=== PATIENT | male | born 1960 | race Caucasian/White ===

== ENCOUNTER 2017-07-25 12:37 | Outpatient (CLI) | payer BC ==
--- NOTE | 2017-07-25 14:12 | ULT ---
VENOUS DOPPLER ULTRASOUND OF THE LEFT LOWER EXTREMITY: Date: 07/25/17 HISTORY: Follow-up of popliteal vein thrombosis of the left lower extremity. TECHNIQUE: Ashford scale ultrasound with color flow and spectral Doppler imaging of the deep venous systems of the left lower extremity is performed. FINDINGS: Comparison made with exam dated 01/03/17. Partial compressibility due to incompletely occlusive thrombus in the popliteal vein with diminished flow is again seen. The remainder of the deep venous system of the left lower extremity is otherwise patent. 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 POS: HOANG
== END 2017-07-25 12:38 | disposition home or self-care (01) ==
LOC: ULT 12:37
PROVIDERS: ATTEND Nurse Practitioner Family
DX: I82.432 Acute embolism and thrombosis of left popliteal vein (principal)

== ENCOUNTER 2018-01-18 12:28 | Outpatient (CLI) | payer BC ==
--- NOTE | 2018-01-18 13:49 | ULT ---
ULTRASOUND WITH DOPPLER DUPLEX VENOUS LOWER EXTREMITY LEFT: CPT: 20074 ICD-10-PCS: B54D INDICATION: History of chronic deep venous thrombosis. Reference made to 07/25/17 exam. TECHNIQUE: Color flow Doppler, spectral waveform analysis of pulsed Doppler, and huertas-scale imaging with cris constantino and augmentation, were used to evaluate the left common femoral, femoral, popliteal, posterior t ibial, and superficial femoral, veins; and the proximal portions of the profunda femoral and greater saphenous, veins. FINDINGS: There is evidence of increased echogenicity with diminished flow and lack of normal compressibility w ithin the left popliteal vein, as well as within the distal left femoral vein. Deep venous thrombosis of popliteal vein was demonstrated on prior exam of 07/25/17. IMPRESSION: Nonocclusive thrombus redemonstrated. Clot involves the distal thigh region of the left femoral vein, as well as the popliteal vein. Telephone call findings placed to nurse yoli Cole, at time of dictation, 1307 hours, 01/18/18. CODE CR.
== END 2018-01-18 12:29 | disposition home or self-care (01) ==
LOC: SCSULT 12:28
PROVIDERS: ATTEND Nurse Practitioner Family
DX: I10 Essential (primary) hypertension (principal); I82.432 Acute embolism and thrombosis of left popliteal vein; I82.412 Acute embolism and thrombosis of left femoral vein

== ENCOUNTER 2018-07-06 19:51 | Emergency (ER) | payer BC ==
[2018-07-06] MEDS ORDERED: Acetaminophen 500 MG TAB ONE (20:23)
[2018-07-06] MEDS ORDERED: Ondansetron PF 4 MG/2 ML Vial ONE (20:23)
[2018-07-06 20:32] LABS: Hemoglobin 14.5 g/dL (14.0-18.0); Mean Corpuscular HGB CONC 33.3 g/dL (32.0-36.0); Mean Corpuscular Hemoglobin 28.6 pg (27.0-31.0); Mean Corpuscular Volume 85.9 fL (78.0-98.0); Mean Platelet Volume 7.7 fL (7.4-10.4); Platelet Count 189 thou/uL (130-400); RBC Distribution Width 13.4 % (11.5-14.5); Red Blood Cell (RBC) Count 5.05 mill/uL (4.70-6.10); White Blood Cell (WBC) Count 23.6 thou/uL (4.8-10.8)
[2018-07-06 20:56] LABS: ALT (SGPT) 18 U/L (8-55); AST (SGOT) 20 U/L (5-34); Albumin 3.9 g/dL (3.5-5.0); Alkaline Phosphatase 57 U/L (40-150); Anion Gap 18 mmol/L (10-20); BUN (Urea Nitrogen) 18 mg/dL (8.4-25.7); Bilirubin, Total 0.9 mg/dL (0.2-1.2); Calc. Creatinine Clearance 0 mL/min (70-130); Calcium 9.5 mg/dL (7.8-10.44); Carbon Dioxide 19 mmol/L (22-29); Chloride 99 mmol/L (98-107); Estimated GFR-MDRD 63; Globulin 3.5 g/dL (2.4-3.5); Glucose 237 mg/dL (70-105); Potassium 3.7 mmol/L (3.5-5.1); Protein, Total 7.4 g/dL (6.0-8.3); Sodium 132 mmol/L (136-145)
[2018-07-06 21:00] LABS: Band 4 % (5-11); Lymphocytes 3 % (21-51); MDiff Complete? YES; Monocytes 4 % (0-10); Neutrophil 88 % (42-75); Platelet Morphology Comment Appears Adequate; RBC Morphology Normal
[2018-07-06 21:11] LABS: Bilirubin Negative (Negative); Blood, Urine Negative (Negative); Clarity Clear (Clear); Glucose, Urine (Dipstick) Negative (Negative); Leukocyte Negative (Negative); Nitrite Negative (Negative); Protein, Urine (Dipstick) Trace mg/dL (Neg-Trace); Urobilinogen 0.2 mg/dL (0.2-1.0); pH, Urine 5.5 (5.0-9.0)
[2018-07-06] MEDS ORDERED: Ibuprofen 200 MG TAB ONE (22:29)
[2018-07-07] MEDS ORDERED: Acetaminophen 500 MG TAB ONE (00:43)
--- NOTE | 2018-07-07 09:12 | RAD ---
TWO VIEW CHEST: History: Fever. FINDINGS: Lungs appear clear of infiltrate. Heart size is borderline enlarged. There is mild vascular engorgeme nt. No effusion. Osseous structures unremarkable. IMPRESSION: Borderline cardiomegaly with mild vascular engorgement. No evidence of focal infiltrate. POS: H
== END 2018-07-07 01:17 | disposition home or self-care (01) ==
LOC: SCSER 19:51
DX: R50.9 Fever, unspecified (principal); E11.9 Type 2 diabetes mellitus without complications; E78.5 Hyperlipidemia, unspecified; E66.9 Obesity, unspecified; I10 Essential (primary) hypertension; F17.220 Nicotine dependence, chewing tobacco, uncomplicated; Z86.718 Personal history of other venous thrombosis and embolism; Z79.4 Long term (current) use of insulin; Z79.899 Other long term (current) drug therapy
CPT/HCPCS: 71046; 80053; 81003; 83605; 84443; 85025; 87040; 87804; 96361; 96374; J2405

== ENCOUNTER 2018-08-08 14:28 | Outpatient (CLI) | payer BC ==
--- NOTE | 2018-08-08 15:52 | ULT ---
LEFT LOWER EXTREMITY VENOUS ULTRASOUND: History: Chronic thrombus in the left popliteal vein. Acute pulmonary thromboembolism. Technique: Multiplanar grayscale and color doppler images were obtained in a left lower extremity filippo ous ultrasound. Spectral analysis of the doppler waveforms were performed. FINDINGS: Thrombus is again seen in the left popliteal vein which is nonocclusive. No thrombus is seen in the c ommon femoral vein, profunda femoral vein, or superficial femoral vein. The greater saphenous vein is patent without evidence of thrombus. IMPRESSION: Stable nonocclusive thrombus in the left popliteal vein. POS: JEANNETTE
== END 2018-08-08 14:29 | disposition home or self-care (01) ==
LOC: SCSULT 14:28
PROVIDERS: ATTEND Nurse Practitioner Family
DX: I82.432 Acute embolism and thrombosis of left popliteal vein (principal)

== ENCOUNTER 2022-08-18 18:00 | Outpatient (CLI) | payer BC | END 2022-08-18 18:01 | disposition home or self-care (01) | LOC: SLEEPLAB 18:00 | PROVIDERS: ATTEND Family Medicine | DX: G47.33 Obstructive sleep apnea (adult) (pediatric) (principal); F51.9 Sleep disorder not due to a substance or known physiological condition, unspecified | CPT/HCPCS: 95800 ==

== ENCOUNTER 2022-10-12 23:40 | Observation (INO) | payer BC ==
[2022-10-13 00:33] LABS: #Eosinphils 0.2 thou/uL (0.0-0.7); #Lymphocytes 2.5 thou/uL (1.20-3.40); #Monocytes 0.8 thou/uL (0.11-0.59); #Neutrophils 6.8 thou/uL (1.40-6.50); %Basophils 0.2 % (0.0-1.0); %Eosinophils 2.2 % (0.0-10.0); %Lymphocytes 24.4 % (21.0-51.0); %Monocytes 7.5 % (0.0-10.0); %Neutrophils 65.7 % (42.0-75.0); Hemoglobin 13.8 g/dL (14.0-18.0); Mean Corpuscular HGB CONC 34.3 g/dL (32.0-36.0); Mean Corpuscular Hemoglobin 29.5 pg (27.0-31.0); Mean Platelet Volume 8.3 fL (7.4-10.4); Platelet Count 177 10x3/uL (130-400); RBC Distribution Width 13.5 % (11.5-14.5); Red Blood Cell (RBC) Count 4.66 mill/uL (4.70-6.10); White Blood Cell (WBC) Count 10.3 10x3/uL (4.8-10.8)
[2022-10-13 00:55] LABS: ALT (SGPT) 18 U/L (8-55); AST (SGOT) 13 U/L (5-34); Albumin 4.1 g/dL (3.5-5.0); Alkaline Phosphatase 55 U/L (40-110); Anion Gap 16 mmol/L (10-20); BUN (Urea Nitrogen) 19 mg/dL (8.4-25.7); Bilirubin, Total 0.4 mg/dL (0.2-1.2); Calc. Creatinine Clearance 0 mL/min (70-130); Calcium 9.4 mg/dL (7.8-10.44); Carbon Dioxide 22 mmol/L (22-29); Chloride 101 mmol/L (98-107); Estimated GFR 74; Globulin 3.2 g/dL (2.4-3.5); Glucose 298 mg/dL (70-105); Potassium 3.9 mmol/L (3.5-5.1); Protein, Total 7.3 g/dL (6.0-8.3); Sodium 135 mmol/L (136-145)
[2022-10-13 01:16] LABS: CKMB 2.3 ng/mL (0-6.6)
[2022-10-13] MEDS ORDERED: Ondansetron ODT 4 MG TAB PO PRN (01:46)
[2022-10-13] MEDS ORDERED: Acetaminophen 325 MG TAB PO PRN (01:46)
[2022-10-13] MEDS ORDERED: HYDROcodone/Acetaminophen 5/325 mg Tablet PO PRN (01:46)
[2022-10-13] MEDS ORDERED: Nitroglycerin 0.4 MG TAB (25 Tab Bottle) SL PRN (01:46)
[2022-10-13] MEDS ORDERED: Ondansetron PF 4 MG/2 ML Vial IVP PRN (01:46)
[2022-10-13] MEDS ORDERED: Nitroglycerin 2% Ointment 1 INCH/1 GM Packet ONE (01:49)
[2022-10-13] MEDS ORDERED: Dextrose 50% Abboject 50 ML SYRINGE SLOW IVP PRN (01:55)
[2022-10-13] MEDS ORDERED: Dextrose 5% in Water 1,000 ML IV PRN (01:55)
[2022-10-13] MEDS ORDERED: HumaLOG 300 UNITS/3 ML VIAL SC PRN ×2 (01:55)
[2022-10-13 03:27] VITALS: BMI 37.4
[2022-10-13] MEDS: Nitroglycerin 2% Ointment 1 INCH/1 GM Packet TOP SCH ×4 (05:19→21:40)
[2022-10-13 05:33] LABS: Troponin I 0.159 ng/mL (< 0.028)
[2022-10-13 05:34] LABS: Hemoglobin A1c 12.1 % (4.0-6.0)
[2022-10-13 05:36] LABS: Cardiac Risk 6.5 (Less than 4.5); Cholesterol 261 mg/dl (< 200 Desired); HDL Cholesterol 40 mg/dL (>60 Neg Risk); LDL Cholesterol, Calculated 165 mg/dL; Magnesium 1.7 mg/dL (1.6-2.6); Triglycerides 282 mg/dL (Less than 150)
[2022-10-13] MEDS: Aspirin Chewable 81 MG TAB PO SCH (08:28)
[2022-10-13] MEDS ORDERED: Iopamidol 370 76% 100 ML VIAL ONE (08:58)
[2022-10-13 10:25] LABS: Troponin I 0.444 ng/mL (< 0.028)
[2022-10-13] MEDS ORDERED: Communication Order-Pharmacy FS ONE (15:19)
[2022-10-13] MEDS ORDERED: Enoxaparin 120 MG/0.8 ML SYRINGE SC SCH (15:30)
[2022-10-13] MEDS ORDERED: Communication Order-Pharmacy FS SCH (15:30)
[2022-10-13 17:31] LABS: Hemoglobin 13.6 g/dL (14.0-18.0); Platelet Count 175 10x3/uL (130-400)
[2022-10-13] MEDS ORDERED: Atorvastatin Calcium 40 MG TAB PO SCH ×2 (21:00)
[2022-10-14] MEDS ORDERED: Morphine 4 MG/ML VIAL SLOW IVP PRN (04:07)
[2022-10-14] MEDS ORDERED: Aspirin Chewable 81 MG TAB ONE (05:38)
[2022-10-14] MEDS ORDERED: Sodium Chloride 0.9% 1,000 ML IV SCH ×2 (06:00→08:57)
[2022-10-14] MEDS: Aspirin Chewable 81 MG TAB PO SCH (06:02)
[2022-10-14 06:11] LABS: #Basophils 0.1 thou/uL (0.0-0.2); #Eosinphils 0.3 thou/uL (0.0-0.7); #Lymphocytes 1.8 thou/uL (1.20-3.40); #Monocytes 0.6 thou/uL (0.11-0.59); #Neutrophils 7.1 thou/uL (1.40-6.50); %Basophils 0.6 % (0.0-1.0); %Eosinophils 2.6 % (0.0-10.0); %Lymphocytes 17.9 % (21.0-51.0); %Monocytes 6.1 % (0.0-10.0); %Neutrophils 72.8 % (42.0-75.0); Mean Corpuscular HGB CONC 34.1 g/dL (32.0-36.0); Mean Corpuscular Hemoglobin 29.8 pg (27.0-31.0); Mean Corpuscular Volume 87.5 fl (78.0-98.0); Mean Platelet Volume 8.2 fL (7.4-10.4); Platelet Count 189 10x3/uL (130-400); RBC Distribution Width 13.6 % (11.5-14.5); Red Blood Cell (RBC) Count 5.02 mill/uL (4.70-6.10); White Blood Cell (WBC) Count 9.8 10x3/uL (4.8-10.8)
[2022-10-14 06:24] LABS: Anion Gap 16 mmol/L (10-20); BUN (Urea Nitrogen) 14 mg/dL (8.4-25.7); Calc. Creatinine Clearance 112 mL/min (70-130); Calcium 9.4 mg/dL (7.8-10.44); Carbon Dioxide 20 mmol/L (22-29); Chloride 101 mmol/L (98-107); Estimated GFR 67; Glucose 279 mg/dL (70-105); Potassium 4.2 mmol/L (3.5-5.1); Sodium 133 mmol/L (136-145)
[2022-10-14 06:25] LABS: Magnesium 1.8 mg/dL (1.6-2.6)
[2022-10-14] MEDS ORDERED: Lidocaine 1% (PF) 30 ML VIAL ONE (06:45)
[2022-10-14] MEDS ORDERED: Heparin 10,000 UNITS/ 10 ML VIAL ONE (06:45)
[2022-10-14] MEDS ORDERED: fentaNYL 50 mcg/mL 1 mL Vial ONE (07:31)
[2022-10-14] MEDS ORDERED: Midazolam HCl 2 mg/2 ml Vial ONE (07:32)
[2022-10-14] MEDS ORDERED: Nitroglycerin 50 MG/250 ML BOT 250 ML ONE (08:03)
[2022-10-14] MEDS ORDERED: Bivalirudin 250 MG VIAL ONE (08:03)
[2022-10-14] MEDS ORDERED: TICAGRELOR 90 MG TABLET ONE (08:11)
[2022-10-14] MEDS ORDERED: TICAGRELOR 90 MG TABLET PO SCH ×2 (09:00→21:00)
[2022-10-14] MEDS ORDERED: Ezetimibe 10 MG TAB PO SCH (09:00)
[2022-10-14] MEDS ORDERED: Iopamidol 370 76% 100 ML VIAL ONE (10:47)
[2022-10-14] MEDS: Nitroglycerin 2% Ointment 1 INCH/1 GM Packet TOP SCH (12:44)
[2022-10-14 15:58] VITALS: BP 157/70
[2022-10-14 17:55] VITALS: TEMP 98.1
== END 2022-10-14 17:53 | disposition home or self-care (01) ==
LOC: ERS 23:40 → 2NO 10-13 01:51
PROVIDERS: ADMIT Internal Medicine; ATTEND Internal Medicine
PROC: 027135Z Dilation of Coronary Artery, Two Arteries with Two Drug-eluting Intraluminal Devices, Percutaneous Approach (ICD-10-PCS; principal; 2022-10-14)
PROC: 4A023N7 Measurement of Cardiac Sampling and Pressure, Left Heart, Percutaneous Approach (ICD-10-PCS; 2022-10-14)
PROC: B2111ZZ Fluoroscopy of Multiple Coronary Arteries using Low Osmolar Contrast (ICD-10-PCS; 2022-10-14)
DX: I21.4 Non-ST elevation (NSTEMI) myocardial infarction (principal); I25.10 Atherosclerotic heart disease of native coronary artery without angina pectoris; E11.42 Type 2 diabetes mellitus with diabetic polyneuropathy; H91.91 Unspecified hearing loss, right ear; I10 Essential (primary) hypertension; E78.00 Pure hypercholesterolemia, unspecified; N40.0 Benign prostatic hyperplasia without lower urinary tract symptoms; F17.220 Nicotine dependence, chewing tobacco, uncomplicated; E66.01 Morbid (severe) obesity due to excess calories; Z68.37 Body mass index [BMI] 37.0-37.9, adult; Z86.718 Personal history of other venous thrombosis and embolism; Z79.4 Long term (current) use of insulin; Z88.0 Allergy status to penicillin
CPT/HCPCS: 36415; 36416; 71045; 71275; 80048; 80053; 80061; 82553; 83036; 83735; 83880; 84443; 84484; 85025; 85347; 92928; 93005; 93010; 93458; 94760; 96372; 96374; 96375; 99152; 99153; C1725; C1769; C1874; C1887; C9600; G0378; J0583; J1644; J1650; J1815; J2001; J2250; J2270; J2405; J3010; J7050; Q9967

== ENCOUNTER 2023-08-30 22:41 | Inpatient (IN) | payer BC ==
[2023-08-30 23:05] LABS: #Basophils 0.1 thou/uL (0.0-0.2); #Eosinphils 0.3 thou/uL (0.0-0.7); #Monocytes 0.8 thou/uL (0.11-0.59); #Neutrophils 6.6 thou/uL (1.40-6.50); %Basophils 0.6 % (0.0-1.0); %Lymphocytes 21.3 % (21.0-51.0); %Monocytes 7.7 % (0.0-10.0); %Neutrophils 65.7 % (42.0-75.0); Hematocrit 42.5 % (42.0-52.0); Hemoglobin 14.3 g/dL (14.0-18.0); Mean Corpuscular HGB CONC 33.6 g/dL (32.0-36.0); Mean Corpuscular Hemoglobin 28.7 pg (27.0-31.0); Mean Corpuscular Volume 85.2 fl (78.0-98.0); Mean Platelet Volume 10.3 fL (7.4-10.4); Platelet Count 206 10x3/uL (130-400); RBC Distribution Width 14.4 % (11.5-14.5); Red Blood Cell (RBC) Count 4.99 mill/uL (4.70-6.10)
[2023-08-30] MEDS ORDERED: Nitroglycerin 2% Ointment 1 INCH/1 GM Packet ONE (23:18)
[2023-08-30 23:21] LABS: ALT (SGPT) 16 U/L (8-55); AST (SGOT) 13 U/L (5-34); Albumin 4.4 g/dL (3.4-4.8); Alkaline Phosphatase 69 U/L (40-110); Anion Gap 14 mmol/L (10-20); BUN (Urea Nitrogen) 25 mg/dL (8.4-25.7); Bilirubin, Total 0.6 mg/dL (0.2-1.2); Calc. Creatinine Clearance 0 mL/min (70-130); Calcium 9.6 mg/dL (7.8-10.44); Carbon Dioxide 27 mmol/L (23-31); Chloride 96 mmol/L (98-107); Estimated GFR 52; Globulin 3.5 g/dL (2.4-3.5); Lipase 181 U/L (8-78); Potassium 4.4 mmol/L (3.5-5.1); Protein, Total 7.9 g/dL (5.8-8.1); Sodium 133 mmol/L (136-145)
[2023-08-30 23:24] LABS: Troponin I 0.049 ng/mL (< 0.028)
[2023-08-30 23:28] LABS: Glucose 404 mg/dL (80-115)
[2023-08-31] MEDS ORDERED: Glucagon 1 MG/ML KIT IM PRN (00:09)
[2023-08-31] MEDS ORDERED: Dextrose 5% in Water 1,000 ML IV PRN (00:09)
[2023-08-31] MEDS ORDERED: Dextrose 50% Abboject 50 ML SYRINGE SLOW IVP PRN (00:09)
[2023-08-31] MEDS ORDERED: Insulin Regular 300 UNITS/3 ML VIAL SC PRN (00:09)
[2023-08-31] MEDS ORDERED: Ondansetron PF 4 MG/2 ML Vial ONE (00:18)
[2023-08-31] MEDS ORDERED: Enoxaparin 100 MG (1 mL) SYRINGE ONE ×2 (00:18→14:25)
[2023-08-31] MEDS ORDERED: Morphine 4 MG/ML VIAL ONE (00:18)
[2023-08-31] MEDS ORDERED: Enoxaparin 30 MG (0.3 mL) SYRINGE ONE ×2 (00:18→14:25)
[2023-08-31 01:57] LABS: Hemoglobin A1c Greater than 14.0 % (4.0-6.0)
[2023-08-31] MEDS: Enoxaparin 30 MG (0.3 mL) SYRINGE SC SCH ×3 (04:17→14:37)
[2023-08-31] MEDS: Enoxaparin 100 MG (1 mL) SYRINGE SC SCH ×2 (04:17→14:36)
[2023-08-31 04:55] LABS: Cardiac Risk 7.5 (Less than 4.5); Cholesterol 269 mg/dl (< 200 Desired); HDL Cholesterol 36 mg/dL (>60 Neg Risk); Triglycerides 456 mg/dL (Less than 150)
[2023-08-31 05:04] LABS: Troponin I 3.738 ng/mL (< 0.028)
[2023-08-31] MEDS ORDERED: Aspirin Chewable 81 MG TAB ONE (09:57)
[2023-08-31] MEDS: Aspirin 325 mg Enteric Coated Tablet PO SCH (09:59)
[2023-08-31] MEDS ORDERED: Enoxaparin 120 MG/0.8 ML SYRINGE SC SCH (13:00)
[2023-08-31] MEDS: Insulin Glargine 30 UNITS/0.3 ML VIAL SC SCH (14:36)
[2023-08-31 15:16] VITALS: BMI 38.0
[2023-08-31] MEDS ORDERED: Nitroglycerin 50 MG/250 ML BOT 250 ML ONE (16:22)
[2023-08-31] MEDS ORDERED: Verapamil 5 MG/2 ML VIAL ONE (16:22)
[2023-08-31] MEDS ORDERED: Communication Order-Pharmacy FS SCH (16:30)
[2023-08-31] MEDS ORDERED: Midazolam HCl 2 mg/2 ml Vial ONE (17:01)
[2023-08-31] MEDS ORDERED: fentaNYL 50 mcg/mL 1 mL Vial ONE (17:01)
[2023-08-31] MEDS: Sodium Chloride 0.9% 1,000 ML IV SCH ×2 (18:36→18:42)
[2023-08-31] MEDS: TICAGRELOR 90 MG TABLET PO SCH (21:45)
[2023-08-31] MEDS: Atorvastatin Calcium 40 MG TAB PO SCH (21:45)
[2023-08-31] MEDS: Morphine 2 MG/ML VIAL SLOW IVP PRN (22:51)
[2023-08-31] MEDS: Calcium Carbonate 500 MG ChewTAB PO PRN (22:51)
[2023-09-01 06:30] LABS: #Eosinphils 0.3 thou/uL (0.0-0.7); #Monocytes 0.7 thou/uL (0.11-0.59); #Neutrophils 5.4 thou/uL (1.40-6.50); %Basophils 0.4 % (0.0-1.0); %Eosinophils 3.2 % (0.0-10.0); %Lymphocytes 16.7 % (21.0-51.0); %Monocytes 8.7 % (0.0-10.0); %Neutrophils 69.7 % (42.0-75.0); Hematocrit 40.2 % (42.0-52.0); Hemoglobin 13.4 g/dL (14.0-18.0); Mean Corpuscular HGB CONC 33.3 g/dL (32.0-36.0); Mean Corpuscular Hemoglobin 29.1 pg (27.0-31.0); Mean Corpuscular Volume 87.2 fl (78.0-98.0); Mean Platelet Volume 10.3 fL (7.4-10.4); Platelet Count 182 10x3/uL (130-400); RBC Distribution Width 14.4 % (11.5-14.5); Red Blood Cell (RBC) Count 4.61 mill/uL (4.70-6.10); White Blood Cell (WBC) Count 7.7 10x3/uL (4.8-10.8)
[2023-09-01 06:56] LABS: ALT (SGPT) 15 U/L (8-55); AST (SGOT) 32 U/L (5-34); Albumin 3.5 g/dL (3.4-4.8); Alkaline Phosphatase 57 U/L (40-110); Anion Gap 12 mmol/L (10-20); BUN (Urea Nitrogen) 13 mg/dL (8.4-25.7); Bilirubin, Total 0.6 mg/dL (0.2-1.2); Calc. Creatinine Clearance 138 mL/min (70-130); Calcium 9.1 mg/dL (7.8-10.44); Carbon Dioxide 23 mmol/L (23-31); Chloride 101 mmol/L (98-107); Estimated GFR 86; Glucose 255 mg/dL (80-115); Potassium 4.2 mmol/L (3.5-5.1); Protein, Total 6.5 g/dL (5.8-8.1); Sodium 132 mmol/L (136-145)
[2023-09-01] MEDS: HumaLOG 300 UNITS/3 ML VIAL SC PRN ×2 (07:04→14:56)
[2023-09-01] MEDS: Aspirin Chewable 81 MG TAB PO SCH (07:27)
[2023-09-01] MEDS: Pantoprazole 40 MG VIAL IVP SCH (07:27)
[2023-09-01] MEDS: Insulin Glargine 30 UNITS/0.3 ML VIAL SC SCH (07:28)
[2023-09-02 07:52] VITALS: BP 131/60; TEMP 97.1
== END 2023-09-02 11:30 | disposition home or self-care (01) | DRG 281 ==
LOC: ERS 22:41 → OBSVTOIN 08-31 00:10 → ERHOLD 08-31 00:10 → 2SW 08-31 15:00 → CCU 08-31 18:37 → 2NO 09-01 10:01
PROVIDERS: ADMIT Hospitalist; ATTEND Internal Medicine
PROC: 4A023N7 Measurement of Cardiac Sampling and Pressure, Left Heart, Percutaneous Approach (ICD-10-PCS; principal; 2023-08-31)
PROC: B2151ZZ Fluoroscopy of Left Heart using Low Osmolar Contrast (ICD-10-PCS; 2023-08-31)
PROC: B2111ZZ Fluoroscopy of Multiple Coronary Arteries using Low Osmolar Contrast (ICD-10-PCS; 2023-08-31)
DX: I21.4 Non-ST elevation (NSTEMI) myocardial infarction (principal); N17.9 Acute kidney failure, unspecified; Z88.0 Allergy status to penicillin; Z79.899 Other long term (current) drug therapy; Z79.82 Long term (current) use of aspirin; Z79.4 Long term (current) use of insulin; E11.9 Type 2 diabetes mellitus without complications; E78.00 Pure hypercholesterolemia, unspecified; I25.2 Old myocardial infarction; F17.220 Nicotine dependence, chewing tobacco, uncomplicated; E11.65 Type 2 diabetes mellitus with hyperglycemia; I25.110 Atherosclerotic heart disease of native coronary artery with unstable angina pectoris; K21.9 Gastro-esophageal reflux disease without esophagitis
CPT/HCPCS: 36415; 36416; 71045; 80053; 80061; 83036; 83690; 84484; 85025; 93005; 93010; 93306; 93458; 93798; 94760; 96372; 96374; 96375; 99152; 99153; C1769; C1887; C1894; C9113; J1650; J1815; J2250; J2270; J2272; J2405; J3010; J7050

== ENCOUNTER 2023-12-06 10:25 | Inpatient (IN) | payer BC ==
[2023-12-06] MEDS ORDERED: Acetaminophen 500 MG TAB ONE (10:51)
[2023-12-06] MEDS ORDERED: Ondansetron PF 4 MG/2 ML Vial ONE (10:52)
[2023-12-06 11:35] LABS: #Basophils 0.06 10x3/uL (0.0-0.2); %Basophils 0.3 % (0.0-1.0); %Eosinophils 1.4 % (0.0-10.0); %Lymphocytes 10.3 % (21.0-51.0); %Monocytes 5.3 % (0.0-10.0); Hemoglobin 14.1 g/dL (14.0-18.0); Mean Corpuscular Hemoglobin 28.5 pg (27.0-31.0); Mean Corpuscular Volume 88.9 fL (78.0-98.0); Mean Platelet Volume 10.7 fL (7.4-10.4); Platelet Count 238 10x3/uL (130-400); RBC Distribution Width 14.6 % (11.5-14.5); Red Blood Cell (RBC) Count 4.95 mill/uL (4.70-6.10)
[2023-12-06 11:51] LABS: Prothrombin Time 13.3 sec (12.0-14.7)
[2023-12-06 11:53] LABS: ALT (SGPT) 34 U/L (8-55); AST (SGOT) 21 U/L (5-34); Albumin 4.5 g/dL (3.4-4.8); Alkaline Phosphatase 68 U/L (40-110); Anion Gap 21 mmol/L (10-20); BUN (Urea Nitrogen) 23 mg/dL (8.4-25.7); Bilirubin, Total 0.7 mg/dL (0.2-1.2); Calc. Creatinine Clearance 0 mL/min (70-130); Calcium 10.3 mg/dL (7.8-10.44); Carbon Dioxide 22 mmol/L (23-31); Chloride 100 mmol/L (98-107); Estimated GFR 64; Globulin 4.4 g/dL (2.4-3.5); Glucose 215 mg/dL (80-115); Potassium 3.7 mmol/L (3.5-5.1); Protein, Total 8.9 g/dL (5.8-8.1); Sodium 139 mmol/L (136-145)
[2023-12-06 11:55] LABS: Troponin I 0.014 ng/mL (< 0.028)
[2023-12-06 12:18] LABS: Bacteria/HPF None Seen HPF (None Seen); Bilirubin Negative (Negative); Blood, Urine 2+ (Negative); CAUTI Indications for Culture Alt mental st,lethar; Clarity Clear (Clear); Glucose, Urine (Dipstick) 30 mg/dL (Negative); Ketone, Urine Negative (Negative); Leukocyte Negative Leu/uL (Negative); Nitrite Negative (Negative); Protein, Urine (Dipstick) 30 mg/dL (Neg-Trace); RBC/HPF 0-3 HPF (0-3); Specific Gravity, Urine 1.011 (1.002-1.036); Squamous Epithelial None Seen HPF (0-3); Urobilinogen Normal mg/dL (Less than 2); WBC/HPF 0-3 HPF (0-3)
[2023-12-06 12:21] LABS: Urine Culture Reflex No No
[2023-12-06] MEDS ORDERED: Iopamidol-370 76% 500 ML MDV (1 ML CHARGE) ONE (12:28)
[2023-12-06 13:09] LABS: Influenza A by NAA Not Detected (NotDetected); Influenza B by NAA Not Detected (NotDetected); SARS-CoV-2 NAA Rapid Test Not Detected (NotDetected)
[2023-12-06] MEDS ORDERED: Furosemide 40 MG (4 mL) VIAL ONE (13:49)
[2023-12-06] MEDS ORDERED: Ondansetron PF 4 MG/2 ML Vial IVP PRN (14:11)
[2023-12-06] MEDS ORDERED: Dextrose 5% in Water 1,000 ML IV PRN (14:11)
[2023-12-06] MEDS ORDERED: Dextrose 50% Abboject 50 ML SYRINGE SLOW IVP PRN (14:11)
[2023-12-06] MEDS ORDERED: Glucagon 1 MG/ML KIT IM PRN (14:11)
[2023-12-06] MEDS ORDERED: Ondansetron ODT 4 MG TAB PO PRN (14:11)
[2023-12-06] MEDS ORDERED: Senokot S 8.6-50 MG TAB PO PRN (14:11)
[2023-12-06] MEDS ORDERED: Ketorolac Tromethamine 30 MG (1 mL) VIAL IVP PRN (14:11)
[2023-12-06 14:15] LABS: Actual Bicarbonate (HCO3v) 25.5 mEq/L (22-28); Base Excess 0.7 mEq/L (-2.0 to +3.0); Calcium, Ionized (venous) 1.09 mmol/L (1.16-1.32); Chloride (VBG) 98 mmol/L (98-106); Hematocrit-VBG 39 % (42.0-52.0); Hemoglobin (Hb) 13.3 g/dL (13.1-17.2); Potassium (VBG) 3.83 mmol/L (3.70-5.30); Sodium 137 mmol/L (133-146); pH (venous) 7.405 (7.32-7.43)
[2023-12-06] MEDS ORDERED: Pharmacy to Dose ABXS IVPB PRN (14:16)
[2023-12-06 14:31] LABS: Lactic Acid 1.9 mmol/L (0.5-2.2)
[2023-12-06] MEDS: Aztreonam 1 GM in Sodium Chloride 0.9% 100 ML IVPB SCH (17:23)
[2023-12-06] MEDS: Vancomycin (BATCH) 2.5 GM in Premix 1 BAG IVPB SCH (17:24)
[2023-12-06] MEDS: Sodium Chloride 0.9% 1,000 ML IV SCH (17:24)
[2023-12-06] MEDS: Acetaminophen 325 MG TAB PO SCH (17:24)
[2023-12-06] MEDS: Insulin Regular, Human 100 UNIT/ML 10 ML VIAL SC PRN (18:17)
[2023-12-06] MEDS ORDERED: Vancomycin 1 GM in Sodium Chloride 0.9% 250 ML 300 ML IVPB SCH (21:00)
[2023-12-06] MEDS: Famotidine 20 MG TAB PO SCH (21:25)
[2023-12-06] MEDS ORDERED: Aztreonam 2 GM in Sodium Chloride 0.9% 100 ML IVPB SCH (22:00)
[2023-12-06 22:23] VITALS: BMI 37.4
[2023-12-06] MEDS: Cefepime 2 GM in Sodium Chloride 0.9% 100 ML IVPB SCH (23:26)
[2023-12-07] MEDS: Vancomycin (BATCH) 1.25 GM in Premix 1 BAG IVPB SCH (00:41)
[2023-12-07 04:06] LABS: #Basophils 0.06 10x3/uL (0.0-0.2); #Eosinphils Less than 0.03 10x3/uL (0.0-0.7); %Basophils 0.3 % (0.0-1.0); %Monocytes 4.9 % (0.0-10.0); %Neutrophils 91.2 % (42.0-75.0); Hematocrit 34.4 % (42.0-52.0); Hemoglobin 11.3 g/dL (14.0-18.0); Mean Corpuscular HGB CONC 32.8 g/dL (32.0-36.0); Mean Corpuscular Volume 88.2 fL (78.0-98.0); Mean Platelet Volume 10.5 fL (7.4-10.4); Platelet Count 159 10x3/uL (130-400); RBC Distribution Width 14.8 % (11.5-14.5)
[2023-12-07 04:14] LABS: Vancomycin, Random 29.2 ug/mL (See Comment)
[2023-12-07 04:18] LABS: Anion Gap 15 mmol/L (10-20); BUN (Urea Nitrogen) 25 mg/dL (8.4-25.7); Calc. Creatinine Clearance 97 mL/min (70-130); Calcium 8.3 mg/dL (7.8-10.44); Carbon Dioxide 25 mmol/L (23-31); Chloride 100 mmol/L (98-107); Estimated GFR 55; Glucose 164 mg/dL (80-115); Potassium 3.9 mmol/L (3.5-5.1); Sodium 136 mmol/L (136-145)
[2023-12-07] MEDS: Furosemide 40 MG (4 mL) VIAL SLOW IVP SCH (05:28)
[2023-12-07] MEDS: Enoxaparin 40 MG (0.4 mL) SYRINGE SC SCH (10:01)
[2023-12-07] MEDS: cefTRIAXone\\ROCEPHIN 2 GM in Sodium Chloride 0.9% 100 ML IVPB SCH (14:23)
[2023-12-07] MEDS ORDERED: Vancomycin (BATCH) 1.75 GM in Premix 1 BAG IVPB SCH (21:00)
[2023-12-07] MEDS: Atorvastatin Calcium 40 MG TAB PO SCH (21:01)
[2023-12-07] MEDS: TICAGRELOR 90 MG TABLET PO SCH (21:01)
[2023-12-07] MEDS: Insulin Glargine 30 UNITS/0.3 ML VIAL SC SCH (21:01)
[2023-12-08 05:02] LABS: Hematocrit 37.1 % (42.0-52.0); Hemoglobin 11.9 g/dL (14.0-18.0); Mean Corpuscular HGB CONC 32.1 g/dL (32.0-36.0); Mean Corpuscular Hemoglobin 28.2 pg (27.0-31.0); Mean Corpuscular Volume 87.9 fL (78.0-98.0); Mean Platelet Volume 10.5 fL (7.4-10.4); Platelet Count 149 10x3/uL (130-400); RBC Distribution Width 15.2 % (11.5-14.5); Red Blood Cell (RBC) Count 4.22 mill/uL (4.70-6.10)
[2023-12-08 05:10] LABS: Anion Gap 17 mmol/L (10-20); Calc. Creatinine Clearance 103 mL/min (70-130); Calcium 8.8 mg/dL (7.8-10.44); Carbon Dioxide 24 mmol/L (23-31); Chloride 101 mmol/L (98-107); Estimated GFR 59; Glucose 136 mg/dL (80-115); Potassium 3.5 mmol/L (3.5-5.1); Sodium 138 mmol/L (136-145)
[2023-12-08 05:26] LABS: BUN (Urea Nitrogen) 28 mg/dL (8.4-25.7)
[2023-12-08] MEDS: Ezetimibe 10 MG TAB PO SCH (08:54)
[2023-12-08] MEDS: Aspirin Chewable 81 MG TAB PO SCH (08:55)
[2023-12-08] MEDS: Potassium Chloride 20 MEQ TAB PO SCH (09:00)
[2023-12-10 05:50] LABS: Anion Gap 16 mmol/L (10-20); BUN (Urea Nitrogen) 20 mg/dL (8.4-25.7); Calc. Creatinine Clearance 155 mL/min (70-130); Calcium 9.5 mg/dL (7.8-10.44); Carbon Dioxide 24 mmol/L (23-31); Chloride 105 mmol/L (98-107); Estimated GFR 97; Glucose 74 mg/dL (80-115); Potassium 3.2 mmol/L (3.5-5.1); Sodium 142 mmol/L (136-145)
[2023-12-10] MEDS: Furosemide 20 MG TAB PO SCH (09:27)
[2023-12-11] MEDS: Potassium Chloride 20 MEQ TAB PO SCH (08:53)
[2023-12-12] MEDS ORDERED: Lidocaine 1% PF 5 ML VIAL ONE (08:14)
[2023-12-12] MEDS ORDERED: Sodium Bicarbonate 2.5 MEQ/5 ML SDV ONE (08:14)
[2023-12-12] MEDS: Insulin Lispro 100 UNIT/ML 10 ML VIAL SC PRN (13:16)
[2023-12-13 16:09] VITALS: BP 177/81; TEMP 98.2
== END 2023-12-13 16:40 | disposition home health service (06) | DRG 871 ==
LOC: ERS 10:25 → ERHOLD 13:54 → 2NO 15:38
PROVIDERS: ADMIT Internal Medicine; ATTEND Internal Medicine
PROC: 02HV33Z Insertion of Infusion Device into Superior Vena Cava, Percutaneous Approach (ICD-10-PCS; principal; 2023-12-12)
PROC: B548ZZA Ultrasonography of Superior Vena Cava, Guidance (ICD-10-PCS; 2023-12-12)
DX: A40.1 Sepsis due to streptococcus, group B (principal); I50.43 Acute on chronic combined systolic (congestive) and diastolic (congestive) heart failure; E87.20 Acidosis, unspecified; I25.10 Atherosclerotic heart disease of native coronary artery without angina pectoris; E11.9 Type 2 diabetes mellitus without complications; E66.01 Morbid (severe) obesity due to excess calories; I25.2 Old myocardial infarction; E78.5 Hyperlipidemia, unspecified; N40.0 Benign prostatic hyperplasia without lower urinary tract symptoms; I11.0 Hypertensive heart disease with heart failure; Z86.718 Personal history of other venous thrombosis and embolism; Z88.0 Allergy status to penicillin; Z79.82 Long term (current) use of aspirin; Z79.899 Other long term (current) drug therapy; Z95.5 Presence of coronary angioplasty implant and graft; Z90.79 Acquired absence of other genital organ(s); Z79.4 Long term (current) use of insulin; Z87.891 Personal history of nicotine dependence; Z68.36 Body mass index [BMI] 36.0-36.9, adult
CPT/HCPCS: 36415; 36416; 36569; 71045; 71275; 76937; 77001; 80048; 80053; 80202; 81001; 82010; 82550; 82805; 83605; 83880; 84145; 84443; 84484; 85025; 85027; 85610; 85730; 86141; 87040; 87077; 87081; 87086; 87149; 87186; 93005; 93306; 94760; 96361; 96365; 96375; 97139; C1751; J0457; J0692; J0696; J1650; J1815; J1940; J2405; J3370; J3490; Q9967

== ENCOUNTER → 2023-12-20 | Day surgery (SDC) | payer BC ==
[2023-12-20 10:33] LABS: #Basophils 0.03 10x3/uL (0.0-0.2); %Basophils 0.4 % (0.0-1.0); %Eosinophils 2.1 % (0.0-10.0); %Lymphocytes 15.2 % (21.0-51.0); %Monocytes 8.5 % (0.0-10.0); %Neutrophils 72.7 % (42.0-75.0); Hematocrit 38.5 % (42.0-52.0); Hemoglobin 12.2 g/dL (14.0-18.0); Mean Corpuscular HGB CONC 31.7 g/dL (32.0-36.0); Mean Corpuscular Volume 88.5 fL (78.0-98.0); Mean Platelet Volume 9.9 fL (7.4-10.4); Platelet Count 191 10x3/uL (130-400); RBC Distribution Width 14.6 % (11.5-14.5); Red Blood Cell (RBC) Count 4.35 mill/uL (4.70-6.10)
[2023-12-20 10:59] LABS: ALT (SGPT) 29 U/L (8-55); AST (SGOT) 18 U/L (5-34); Albumin 3.6 g/dL (3.4-4.8); Alkaline Phosphatase 54 U/L (40-110); Anion Gap 14 mmol/L (10-20); BUN (Urea Nitrogen) 23 mg/dL (8.4-25.7); Bilirubin, Total 0.6 mg/dL (0.2-1.2); Calc. Creatinine Clearance 0 mL/min (70-130); Calcium 9.7 mg/dL (7.8-10.44); Carbon Dioxide 26 mmol/L (23-31); Chloride 102 mmol/L (98-107); Estimated GFR 72; Globulin 3.8 g/dL (2.4-3.5); Glucose 219 mg/dL (80-115); Potassium 4.5 mmol/L (3.5-5.1); Protein, Total 7.4 g/dL (5.8-8.1); Sodium 137 mmol/L (136-145)
== END ==
LOC: ONC/OP 09:45
PROVIDERS: ATTEND Student in an Organized Health Care Education/Training Program
DX: R78.81 Bacteremia (principal); Z88.0 Allergy status to penicillin
CPT/HCPCS: 36592; 80053; 85025; 86141; 99211; G0463; J1642

== ENCOUNTER 2023-12-28 10:29 | Day surgery (SDC) | payer BC | END 2023-12-28 12:37 | disposition home or self-care (01) | LOC: ONC/OP 10:29 | PROVIDERS: ATTEND Student in an Organized Health Care Education/Training Program | DX: R78.81 Bacteremia (principal); B95.1 Streptococcus, group B, as the cause of diseases classified elsewhere; Z88.0 Allergy status to penicillin | CPT/HCPCS: 99211; G0463 ==

== ENCOUNTER 2024-01-01 11:59 | Inpatient (IN) | payer BC ==
[~2024-01-01 11:59] MED LIST: Iopamidol-370 76% 500 ML MDV (1 ML CHARGE) ONE
[2024-01-01] MEDS ORDERED: cefTRIAXone (ROCEPHIN) 1 GM VIAL ONE (12:44)
[2024-01-01] MEDS ORDERED: Acetaminophen 500 MG TAB ONE (12:44)
[2024-01-01] MEDS ORDERED: Sodium Chloride 0.9% 100 ML ONE (12:44)
[2024-01-01 13:02] LABS: #Basophils 0.03 10x3/uL (0.0-0.2); %Basophils 0.2 % (0.0-1.0); %Eosinophils 1.1 % (0.0-10.0); %Lymphocytes 4.9 % (21.0-51.0); %Monocytes 6.4 % (0.0-10.0); %Neutrophils 86.9 % (42.0-75.0); Hematocrit 39.2 % (42.0-52.0); Hemoglobin 13.2 g/dL (14.0-18.0); Mean Corpuscular HGB CONC 33.7 g/dL (32.0-36.0); Mean Corpuscular Hemoglobin 28.7 pg (27.0-31.0); Mean Corpuscular Volume 85.2 fL (78.0-98.0); Mean Platelet Volume 10.5 fL (7.4-10.4); Platelet Count 170 10x3/uL (130-400); RBC Distribution Width 14.6 % (11.5-14.5)
[2024-01-01 13:21] LABS: PTT 27.2 sec (22.9-36.1); Prothrombin Time 13.3 sec (12.0-14.7)
[2024-01-01 13:22] LABS: ALT (SGPT) 22 U/L (8-55); AST (SGOT) 16 U/L (5-34); Albumin 3.8 g/dL (3.4-4.8); Alkaline Phosphatase 61 U/L (40-110); Anion Gap 12 mmol/L (10-20); BUN (Urea Nitrogen) 20 mg/dL (8.4-25.7); Bilirubin, Total 0.7 mg/dL (0.2-1.2); Calc. Creatinine Clearance 0 mL/min (70-130); Calcium 9.4 mg/dL (7.8-10.44); Carbon Dioxide 26 mmol/L (23-31); Chloride 100 mmol/L (98-107); Estimated GFR 60; Globulin 3.2 g/dL (2.4-3.5); Glucose 248 mg/dL (80-115); Lipase 73 U/L (8-78); Magnesium 1.5 mg/dL (1.6-2.6); Potassium 4.1 mmol/L (3.5-5.1); Sodium 134 mmol/L (136-145)
[2024-01-01 13:51] LABS: Influenza A by NAA Not Detected (NotDetected); Influenza B by NAA Not Detected (NotDetected); SARS-CoV-2 NAA Rapid Test Not Detected (NotDetected)
[2024-01-01] MEDS ORDERED: Magnesium 2 GM/50 ML BAG (IN WATER) ONE (15:10)
[2024-01-01 15:24] LABS: Bacteria/HPF None Seen HPF (None Seen); Bilirubin Negative (Negative); Blood, Urine 1+ (Negative); CAUTI Indications for Culture Acute Hematuria; Clarity Clear (Clear); Glucose, Urine (Dipstick) 50 mg/dL (Negative); Ketone, Urine Negative (Negative); Leukocyte Negative Leu/uL (Negative); Nitrite Negative (Negative); Protein, Urine (Dipstick) 10 mg/dL (Neg-Trace); RBC/HPF 0-3 HPF (0-3); Specific Gravity, Urine 1.008 (1.002-1.036); Squamous Epithelial None Seen HPF (0-3); Urobilinogen Normal mg/dL (Less than 2); WBC/HPF 0-3 HPF (0-3)
[2024-01-01 15:26] LABS: Urine Culture Reflex No No
[2024-01-01] MEDS ORDERED: Dextrose 50% Abboject 50 ML SYRINGE SLOW IVP PRN (15:48)
[2024-01-01] MEDS ORDERED: Dextrose 5% in Water 1,000 ML IV PRN (15:48)
[2024-01-01] MEDS ORDERED: Glucagon 1 MG/ML KIT IM PRN (15:48)
[2024-01-01 16:58] LABS: Lactic Acid 1.8 mmol/L (0.5-2.2)
[2024-01-01 18:45] VITALS: BMI 36.0
[2024-01-01] MEDS: Sodium Chloride 0.9% 1,000 ML IV SCH (19:24)
[2024-01-01] MEDS: Furosemide 20 MG (2 mL) VIAL SLOW IVP SCH (19:24)
[2024-01-01] MEDS: Famotidine 20 MG TAB PO SCH (20:55)
[2024-01-01] MEDS: Acetaminophen 325 MG TAB PO PRN (20:55)
[2024-01-01] MEDS: Ibuprofen 200 MG TAB PO PRN (22:45)
[2024-01-01 23:43] LABS: Magnesium 1.9 mg/dL (1.6-2.6)
[2024-01-02 05:01] LABS: #Basophils 0.05 10x3/uL (0.0-0.2); %Basophils 0.3 % (0.0-1.0); %Eosinophils 0.5 % (0.0-10.0); %Lymphocytes 6.4 % (21.0-51.0); %Monocytes 6.6 % (0.0-10.0); %Neutrophils 85.7 % (42.0-75.0); Hematocrit 34.6 % (42.0-52.0); Hemoglobin 11.3 g/dL (14.0-18.0); Mean Corpuscular HGB CONC 32.7 g/dL (32.0-36.0); Mean Corpuscular Hemoglobin 28.1 pg (27.0-31.0); Mean Corpuscular Volume 86.1 fL (78.0-98.0); Platelet Count 151 10x3/uL (130-400); RBC Distribution Width 15.1 % (11.5-14.5); Red Blood Cell (RBC) Count 4.02 mill/uL (4.70-6.10)
[2024-01-02 05:26] LABS: Anion Gap 11 mmol/L (10-20); BUN (Urea Nitrogen) 19 mg/dL (8.4-25.7); Calc. Creatinine Clearance 97 mL/min (70-130); Calcium 8.7 mg/dL (7.8-10.44); Carbon Dioxide 26 mmol/L (23-31); Chloride 105 mmol/L (98-107); Estimated GFR 56; Glucose 150 mg/dL (80-115); Potassium 3.6 mmol/L (3.5-5.1); Sodium 138 mmol/L (136-145)
[2024-01-02] MEDS: Enoxaparin 40 MG (0.4 mL) SYRINGE SC SCH (09:00)
[2024-01-02] MEDS: Insulin Regular, Human 100 UNIT/ML 10 ML VIAL SC PRN (13:43)
[2024-01-02] MEDS: cefTRIAXone\\ROCEPHIN 1 GM in Sodium Chloride 0.9% 100 ML IVPB SCH (13:45)
[2024-01-02] MEDS: cefTRIAXone\\ROCEPHIN 2 GM in Sodium Chloride 0.9% 100 ML IVPB SCH (14:27)
[2024-01-02] MEDS: Ipratropium/Albuterol 3 ML NEB NEB SCH (17:08)
[2024-01-02] MEDS: Ondansetron PF 4 MG/2 ML Vial IVP PRN (17:19)
[2024-01-02] MEDS: TICAGRELOR 90 MG TABLET PO SCH (20:13)
[2024-01-02] MEDS ORDERED: Insulin Glargine 30 UNITS/0.3 ML VIAL SC SCH (21:00)
[2024-01-03 08:58] LABS: #Basophils 0.06 10x3/uL (0.0-0.2); %Basophils 0.4 % (0.0-1.0); %Lymphocytes 7.9 % (21.0-51.0); %Monocytes 7.2 % (0.0-10.0); %Neutrophils 82.8 % (42.0-75.0); Hematocrit 41.9 % (42.0-52.0); Hemoglobin 13.2 g/dL (14.0-18.0); Mean Corpuscular HGB CONC 31.5 g/dL (32.0-36.0); Mean Corpuscular Hemoglobin 28.7 pg (27.0-31.0); Mean Corpuscular Volume 91.1 fL (78.0-98.0); Platelet Count 166 10x3/uL (130-400); RBC Distribution Width 15.1 % (11.5-14.5)
[2024-01-03] MEDS: Ezetimibe 10 MG TAB PO SCH (09:15)
[2024-01-03] MEDS: Furosemide 20 MG TAB PO SCH (09:15)
[2024-01-03 09:29] LABS: Anion Gap 16 mmol/L (10-20); BUN (Urea Nitrogen) 16 mg/dL (8.4-25.7); Calc. Creatinine Clearance 134 mL/min (70-130); Calcium 9.5 mg/dL (7.8-10.44); Carbon Dioxide 22 mmol/L (23-31); Chloride 103 mmol/L (98-107); Estimated GFR 82; Glucose 166 mg/dL (80-115); Potassium 4.2 mmol/L (3.5-5.1); Sodium 137 mmol/L (136-145)
[2024-01-03] MEDS: Insulin Lispro 100 UNIT/ML 10 ML VIAL SQ SCH (11:21)
[2024-01-04] MEDS ORDERED: Ketamine In 0.9 % NaCl 50 MG/5 ML SYRINGE ONE (07:18)
[2024-01-04] MEDS ORDERED: PROPOFOL 200 MG/20 ML VIAL ONE (07:28)
[2024-01-04] MEDS ORDERED: Lidocaine 1% PF 5 ML VIAL ONE (07:28)
[2024-01-04] MEDS ORDERED: Glycopyrrolate 0.2 MG/ML 5 ML SYRINGE ONE (07:28)
[2024-01-05] MEDS: Melatonin 3 MG TAB PO PRN (02:11)
[2024-01-05] MEDS: Insulin Regular, Human 100 UNIT/ML 10 ML VIAL SC PRN (06:38)
[2024-01-06 04:43] LABS: #Basophils 0.07 10x3/uL (0.0-0.2); %Basophils 0.7 % (0.0-1.0); %Eosinophils 3.2 % (0.0-10.0); %Monocytes 7.9 % (0.0-10.0); %Neutrophils 76.3 % (42.0-75.0); Hematocrit 34.5 % (42.0-52.0); Mean Corpuscular HGB CONC 31.9 g/dL (32.0-36.0); Mean Corpuscular Hemoglobin 27.4 pg (27.0-31.0); Mean Corpuscular Volume 85.8 fL (78.0-98.0); Mean Platelet Volume 9.8 fL (7.4-10.4); Platelet Count 197 10x3/uL (130-400); RBC Distribution Width 14.6 % (11.5-14.5); Red Blood Cell (RBC) Count 4.02 mill/uL (4.70-6.10)
[2024-01-06 04:59] LABS: ALT (SGPT) 17 U/L (8-55); AST (SGOT) 14 U/L (5-34); Albumin 2.9 g/dL (3.4-4.8); Alkaline Phosphatase 62 U/L (40-110); Anion Gap 14 mmol/L (10-20); BUN (Urea Nitrogen) 11 mg/dL (8.4-25.7); Bilirubin, Total 0.6 mg/dL (0.2-1.2); Calc. Creatinine Clearance 150 mL/min (70-130); Calcium 9.1 mg/dL (7.8-10.44); Carbon Dioxide 22 mmol/L (23-31); Chloride 105 mmol/L (98-107); Estimated GFR 94; Globulin 3.7 g/dL (2.4-3.5); Glucose 192 mg/dL (80-115); Potassium 3.7 mmol/L (3.5-5.1); Protein, Total 6.6 g/dL (5.8-8.1); Sodium 137 mmol/L (136-145)
[2024-01-06 05:10] LABS: CRP,High Sensitivity (Inhouse) 9.67 mg/dL (< or = 0.5)
[2024-01-07 14:36] VITALS: BMI 36.0
[2024-01-09 07:57] VITALS: BP 171/89; TEMP 98.2
== END 2024-01-09 15:04 | disposition home or self-care (01) | DRG 872 ==
LOC: ERS 11:59 → 2NO 15:31 → T4-A 01-06 14:18
PROVIDERS: ADMIT Internal Medicine; ATTEND Internal Medicine
PROC: B24BZZ4 Ultrasonography of Heart with Aorta, Transesophageal (ICD-10-PCS; principal; 2024-01-04)
PROC: 05HD33Z Insertion of Infusion Device into Right Cephalic Vein, Percutaneous Approach (ICD-10-PCS; 2024-01-06)
DX: A41.9 Sepsis, unspecified organism (principal); I50.32 Chronic diastolic (congestive) heart failure; E11.9 Type 2 diabetes mellitus without complications; I25.10 Atherosclerotic heart disease of native coronary artery without angina pectoris; N40.0 Benign prostatic hyperplasia without lower urinary tract symptoms; I11.0 Hypertensive heart disease with heart failure; E78.5 Hyperlipidemia, unspecified; I25.2 Old myocardial infarction; E66.01 Morbid (severe) obesity due to excess calories; H91.90 Unspecified hearing loss, unspecified ear; I08.1 Rheumatic disorders of both mitral and tricuspid valves; H70.11 Chronic mastoiditis, right ear; I70.0 Atherosclerosis of aorta; Z88.0 Allergy status to penicillin; Z79.82 Long term (current) use of aspirin; Z79.899 Other long term (current) drug therapy; Z79.4 Long term (current) use of insulin; Z95.5 Presence of coronary angioplasty implant and graft; Z86.718 Personal history of other venous thrombosis and embolism; Z90.79 Acquired absence of other genital organ(s); Z87.891 Personal history of nicotine dependence; Z99.81 Dependence on supplemental oxygen; Z68.36 Body mass index [BMI] 36.0-36.9, adult
CPT/HCPCS: 36415; 36416; 71045; 74177; 80048; 80053; 81001; 83605; 83690; 83735; 83880; 85025; 85610; 85730; 86141; 87040; 87086; 93005; 93312; 94640; 94760; 96374; 96375; J0696; J1650; J1815; J1940; J2405; J2704; J3475; J3490; J7030; J7050; J7620; Q9967